=== PATIENT | male | born 1995 | race Caucasian/White ===

== ENCOUNTER 2018-10-02 07:57 | Day surgery (SDC) | payer MEDICAID ==
[~2018-10-02] VITALS: Ht 182.9 cm; Wt 77.1 kg
[2018-10-02] MEDS ORDERED: MIDAZOLAM 2 MG/2 ML VIAL ONE ×2 (09:47→10:16)
[2018-10-02] MEDS ORDERED: fentaNYL 0.05 MG/ML VIAL ONE (09:47)
[2018-10-02] MEDS ORDERED: MIDAZOLAM 2 MG/2 ML VIAL IVP ONE (11:10)
== END 2018-10-02 10:55 | disposition home or self-care (01) ==
LOC: MOR 07:57 → MMU 08:00 → MOR 10:55
PROVIDERS: ATTEND Internal Medicine Gastroenterology
DX: K21.9 Gastro-esophageal reflux disease without esophagitis (principal); Z80.0 Family history of malignant neoplasm of digestive organs; Z79.899 Other long term (current) drug therapy
CPT/HCPCS: 43235; J2250; J3010